=== PATIENT | male | born 1955 | race Caucasian/White ===

== ENCOUNTER 2017-07-16 10:27 | Emergency (ER) | payer MEDICAID ==
[~2017-07-16] VITALS: Ht 182.9 cm; Wt 97.0 kg
[~2017-07-16 10:27] MED LIST: GABA-532 PO; LEVO500T2 PO; LORA10TA7 PO; LOVA20TA2 PO; OXYB5TAB11 PO; PANT40TA4 PO; TAMS0.4C32 PO
[2017-07-16] MEDS ORDERED: LIDOcaine 5% patch TP STA (12:22)
[2017-07-16] MEDS ORDERED: DICL100G15 TOP (12:24)
[2017-07-16] MEDS ORDERED: LIDO700A32 TOP (12:24)
[2017-07-16] MEDS ORDERED: CYCL-1 PO (12:24)
[2017-07-16] MEDS ORDERED: NAPR-56 PO (12:24)
[2017-07-16] MEDS ORDERED: HYDROcodone/acetaminophen 5mg/325mg tablet PO ONE (12:25)
[2017-07-16] MEDS ORDERED: cyclobenzaprine 10mg tablet PO ONE (12:25)
[2017-07-16] MEDS ORDERED: ketorolac trometh inj. 60 MG/2 ML VIAL IM ONE (12:25)
[2017-07-16 12:54] VITALS: BP 125/83
== END 2017-07-16 12:56 | disposition home or self-care (01) ==
LOC: ER 10:28
DX: M54.5 Low back pain (principal); E78.00 Pure hypercholesterolemia, unspecified; G89.29 Other chronic pain; Z98.890 Other specified postprocedural states; Z88.5 Allergy status to narcotic agent; Z79.899 Other long term (current) drug therapy
CPT/HCPCS: 96372; 99283; J1885

== ENCOUNTER 2017-09-03 12:18 | Emergency (ER) | payer MEDICAID ==
[~2017-09-03] VITALS: Ht 185.4 cm; Wt 100.0 kg
[~2017-09-03 12:18] MED LIST changes: +CYCL-1 PO; +DICL100G15 TOP; +LIDO700A32 TOP
[2017-09-03] MEDS ORDERED: methylPREDNISolone sod succ 125mg/2ml vial IV ONE (13:30)
[2017-09-03] MEDS ORDERED: ipratropium/albuterol 3ml nebule NEB ONE (13:30)
[2017-09-03] MEDS ORDERED: magnesium 2GM in 50ml NS 50 ML IV ONE (13:30)
[2017-09-03] MEDS ORDERED: aspirin 81mg tab.chew PO ONE (15:40)
[2017-09-03] MEDS ORDERED: normal saline 1000ml 1,000 ML IV ONE (16:05)
[2017-09-03 16:20] LABS: BASOPHILS # (AUTO) 0.1 X10'3 (0-0.2); BASOPHILS % (AUTO) 0.5 % (0-1); EOSINOPHILS # (AUTO) 0.2 X10'3 (0-0.9); EOSINOPHILS % (AUTO) 1.2 % (0-6); HEMATOCRIT 41.9 % (42.0-52.0); HEMOGLOBIN 14.2 g/dl (14.0-17.9); LYMPHOCYTES # (AUTO) 1.1 X10'3 (1.1-4.8); LYMPHOCYTES % (AUTO) 8.7 % (21-51); MEAN CORPUSCULAR HEMOGLOBIN 30.5 PG (27.0-31.0); MEAN CORPUSCULAR HGB CONC 33.9 % (33.0-36.5); MEAN CORPUSCULAR VOLUME 90.2 FL (78-98); MEAN PLATELET VOLUME 10.3 FL (7.4-10.4); MONOCYTES # (AUTO) 0.4 X10'3 (0-0.9); MONOCYTES % (AUTO) 2.8 % (2-12); NEUTROPHILS # (AUTO) 11.2 X10'3 (1.8-7.7); NEUTROPHILS % (AUTO) 86.8 % (42-75); PLATELET COUNT 171 X10'3 (140-440); RED BLOOD COUNT 4.64 X10'6 (4.70-6.10); RED CELL DISTRIBUTION WIDTH 15.3 % (11.5-14.5); WHITE BLOOD COUNT 12.9 X10'3 (4.5-11.0)
[2017-09-03 16:45] LABS: ALANINE AMINOTRANSFERASE 20 U/L (12-78); ALBUMIN 3.6 G/DL (3.4-5.0); ALBUMIN/GLOBULIN RATIO 0.9 (1.1-1.5); ALKALINE PHOSPHATASE 72 IU/L (46-116); ANION GAP 11 (8-16); ASPARTATE AMINO TRANSFERASE 15 U/L (10-37); BILIRUBIN,TOTAL 0.5 MG/DL (0.1-1.0); BLOOD UREA NITROGEN 17 MG/DL (7-18); CALCIUM 8.4 MG/DL (8.5-10.1); CHLORIDE 105 MMOL/L (99-107); CREATININE 0.74 MG/DL (0.60-1.10); GLUCOSE 108 MG/DL (70-104); MAGNESIUM 2.5 MG/DL (1.5-2.4); POTASSIUM 3.6 MMOL/L (3.5-5.1); SODIUM 139 MMOL/L (135-145); TOTAL CARBON DIOXIDE 23.1 MMOL/L (24-32); TOTAL PROTEIN 7.8 G/DL (6.4-8.2); eGFR > 90 ML/MIN
[2017-09-03] MEDS ORDERED: PRED-531 PO (17:23)
[2017-09-03] MEDS ORDERED: ALBU6.7H INH (17:23)
[2017-09-03] MEDS ORDERED: AZIT-63 PO (17:23)
[2017-09-03 17:35] VITALS: BP 153/78
== END 2017-09-03 17:37 | disposition home or self-care (01) ==
LOC: ER 12:19
DX: J40 Bronchitis, not specified as acute or chronic (principal); E78.00 Pure hypercholesterolemia, unspecified; G89.29 Other chronic pain; Z87.442 Personal history of urinary calculi; Z98.890 Other specified postprocedural states; Z88.5 Allergy status to narcotic agent; Z79.899 Other long term (current) drug therapy
CPT/HCPCS: 36415; 71045; 80053; 83735; 83880; 84484; 85025; 93005; 94760; 96361; 96365; 96375; 99285; A6258; J2930; J3475; J7030

== ENCOUNTER 2017-11-17 21:41 | Emergency (ER) | payer MEDICAID ==
[~2017-11-17] VITALS: Ht 182.9 cm; Wt 95.0 kg
[~2017-11-17 21:41] MED LIST changes: +ALBU6.7H INH; +PRED-531 PO
[2017-11-17] MEDS ORDERED: sulfamethoxazole/trimethoprim DS (800/160mg) tablet PO ONE (22:30)
[2017-11-17] MEDS ORDERED: SULF1TAB49 PO (22:31)
[2017-11-17 22:41] VITALS: BP 125/79
== END 2017-11-17 22:45 | disposition home or self-care (01) ==
LOC: ER 21:42
DX: J34.0 Abscess, furuncle and carbuncle of nose (principal); E78.00 Pure hypercholesterolemia, unspecified; G89.29 Other chronic pain; Z87.442 Personal history of urinary calculi; Z98.890 Other specified postprocedural states; Z87.891 Personal history of nicotine dependence; Z88.5 Allergy status to narcotic agent; Z79.899 Other long term (current) drug therapy
CPT/HCPCS: 99283

== ENCOUNTER 2017-12-09 09:44 | Emergency (ER) | payer MEDICAID ==
[~2017-12-09] VITALS: Ht 182.9 cm; Wt 100.0 kg
[~2017-12-09 09:44] MED LIST changes: +SULF1TAB49 PO
[2017-12-09 10:01] VITALS: BP 121/82
[2017-12-09] MEDS ORDERED: MUPI22OI30 TOP (10:25)
[2017-12-14] MEDS ORDERED: DICL75TA5 PO (19:17)
== END 2017-12-09 10:40 | disposition home or self-care (01) ==
LOC: ER 09:45
DX: S01.20XD Unspecified open wound of nose, subsequent encounter (principal); E78.00 Pure hypercholesterolemia, unspecified; G89.29 Other chronic pain; Z87.442 Personal history of urinary calculi; Z98.890 Other specified postprocedural states; Z88.5 Allergy status to narcotic agent; Z79.899 Other long term (current) drug therapy; X58.XXXD Exposure to other specified factors, subsequent encounter
CPT/HCPCS: 99283

== ENCOUNTER 2017-12-12 20:34 | Emergency (ER) | payer MEDICAID ==
[~2017-12-12] VITALS: Ht 182.9 cm; Wt 97.0 kg
[~2017-12-12 20:34] MED LIST changes: +MUPI22OI30 TOP
[2017-12-12 20:40] VITALS: BP 133/74
[2017-12-12] MEDS ORDERED: CEPH-572 PO (21:24)
[2017-12-12] MEDS ORDERED: SULF1TAB49 PO (21:24)
[2017-12-12] MEDS ORDERED: cephalexin 250mg capsule PO ONE (21:40)
[2017-12-12] MEDS ORDERED: sulfamethoxazole/trimethoprim DS (800/160mg) tablet PO ONE (21:40)
[2017-12-14] MEDS ORDERED: DICL75TA5 PO (19:17)
== END 2017-12-12 21:47 | disposition home or self-care (01) ==
LOC: ER 20:34
DX: L03.116 Cellulitis of left lower limb (principal); E78.00 Pure hypercholesterolemia, unspecified; G89.29 Other chronic pain; Z98.890 Other specified postprocedural states; Z88.5 Allergy status to narcotic agent; Z79.899 Other long term (current) drug therapy
CPT/HCPCS: 99283

== ENCOUNTER 2018-09-27 01:16 | Inpatient (IN) | payer MEDICAID | END 2018-09-29 14:44 | disposition home or self-care (01) | LOC: ER 01:16 → SUR 3N 09-28 14:22 → ED HOLD 05:06 → SUR 3N 18:45 ==

== ENCOUNTER 2018-10-05 15:14 | Inpatient (IN) | payer MEDICAID | END 2018-10-08 16:45 | disposition home or self-care (01) | LOC: ER 15:14 → ED HOLD 20:35 → SUR 3N 22:30 ==

== ENCOUNTER 2018-11-28 17:56 | Emergency (ER) | payer MEDICAID ==
[~2018-11-28] VITALS: Ht 182.9 cm; Wt 104.5 kg
[~2018-11-28 17:56] MED LIST changes: -ALBU6.7H INH; -CYCL-1 PO; -DICL100G15 TOP; +HYDR-3972 PO; +LACT1CAP26 PO; -LEVO500T2 PO; -LIDO700A32 TOP; -MUPI22OI30 TOP; -OXYB5TAB11 PO; -PANT40TA4 PO; -PRED-531 PO; -SULF1TAB49 PO; -TAMS0.4C32 PO
[2018-11-28] MEDS ORDERED: normal saline 1000ml 1,000 ML IVB ONE (18:43)
[2018-11-28 19:07] LABS: BASOPHILS # (AUTO) 0.1 X10'3 (0-0.2); BASOPHILS % (AUTO) 0.6 % (0-1); EOSINOPHILS # (AUTO) 0.6 X10'3 (0-0.9); EOSINOPHILS % (AUTO) 4.1 % (0-6); HEMATOCRIT 46.4 % (42.0-52.0); HEMOGLOBIN 15.3 g/dl (14.0-17.9); LYMPHOCYTES # (AUTO) 3.2 X10'3 (1.1-4.8); LYMPHOCYTES % (AUTO) 21.2 % (21-51); MEAN CORPUSCULAR HEMOGLOBIN 30.1 PG (27.0-31.0); MEAN CORPUSCULAR VOLUME 91.3 FL (78-98); MEAN PLATELET VOLUME 10.5 FL (7.4-10.4); MONOCYTES # (AUTO) 1.9 X10'3 (0-0.9); MONOCYTES % (AUTO) 12.2 % (2-12); NEUTROPHILS # (AUTO) 9.5 X10'3 (1.8-7.7); NEUTROPHILS % (AUTO) 61.9 % (42-75); PLATELET COUNT 192 X10'3 (140-440); RED BLOOD COUNT 5.08 X10'6 (4.70-6.10); RED CELL DISTRIBUTION WIDTH 15.2 % (11.5-14.5); WHITE BLOOD COUNT 15.3 X10'3 (4.5-11.0)
[2018-11-28 19:14] LABS: ALANINE AMINOTRANSFERASE 25 U/L (12-78); ALBUMIN 3.8 G/DL (3.4-5.0); ALKALINE PHOSPHATASE 76 IU/L (46-116); ANION GAP 9 (8-16); ASPARTATE AMINO TRANSFERASE 19 U/L (10-37); BILIRUBIN,TOTAL 0.4 MG/DL (0.1-1.0); BLOOD UREA NITROGEN 21 MG/DL (7-18); BUN/CREATININE RATIO 17.8 (5.4-32.0); CALCIUM 8.7 MG/DL (8.5-10.1); CHLORIDE 106 MMOL/L (99-107); CREATININE 1.18 MG/DL (0.60-1.10); GLUCOSE 92 MG/DL (70-104); LIPASE 128 U/L (73-393); POTASSIUM 3.8 MMOL/L (3.5-5.1); SODIUM 143 MMOL/L (135-145); TOTAL CARBON DIOXIDE 27.6 MMOL/L (24-32); TOTAL PROTEIN 7.5 G/DL (6.4-8.2); eGFR 63 ML/MIN
[2018-11-28] MEDS ORDERED: HYDROcodone/acetaminophen 5mg/325mg tablet PO ONE (19:40)
[2018-11-28] MEDS ORDERED: ondansetron/PF 4mg/2ml inj IV ONE (19:40)
[2018-11-28 19:48] LABS: CLARITY,URINE CLEAR (Clear); COLOR,URINE YELLOW (Yellow); GLUCOSE, URINE NEGATIVE (Neg); KETONES,URINE NEGATIVE (Neg); LEUKOCYTE ESTERASE ,URINE NEGATIVE (Neg); NITRITES, URINE NEGATIVE (Neg); OCCULT BLOOD,URINE SMALL (Neg); PH,URINE 5.5 (4.8-8.0); PROTEIN,URINE NEGATIVE (Neg); UROBILINOGEN,URINE 0.2 E.U/dL (0.2-1.0)
[2018-11-28 19:53] LABS: BACTERIA,URINE NONE SEEN /HPF (Neg); RBC,URINE 0-2 /HPF (0-2); SQUAMOUS EPITHELIAL CELL,UR FEW /LPF (FEW); UA COLLECTION TYPE VOIDED; WBC,URINE NONE SEEN /HPF (0-4)
[2018-11-28] MEDS ORDERED: ONDA8TAB6 PO (20:28)
[2018-11-28] MEDS ORDERED: HYDR-3965 PO (20:28)
[2018-11-28] MEDS ORDERED: CYCL-1 PO (20:28)
[2018-11-28 20:32] VITALS: BP 128/50
== END 2018-11-28 20:35 | disposition home or self-care (01) ==
LOC: ER 17:57
DX: M54.9 Dorsalgia, unspecified (principal); R11.10 Vomiting, unspecified; R10.9 Unspecified abdominal pain; E78.00 Pure hypercholesterolemia, unspecified; M19.90 Unspecified osteoarthritis, unspecified site; G89.29 Other chronic pain; Z88.5 Allergy status to narcotic agent; Z98.890 Other specified postprocedural states; Z79.899 Other long term (current) drug therapy
CPT/HCPCS: 36415; 80053; 81001; 83690; 85025; 85610; 96361; 96374; 99283; J2405; J7030

== ENCOUNTER 2019-07-20 13:06 | Emergency (ER) | payer MEDICAID ==
[~2019-07-20] VITALS: Ht 188 cm; Wt 109.1 kg
[~2019-07-20 13:06] MED LIST changes: +CYCL-1 PO; +ONDA8TAB6 PO
[2019-07-20 13:27] LABS: BASOPHILS % (AUTO) 0.5 % (0-1); EOSINOPHILS % (AUTO) 0.5 % (0-6); HEMATOCRIT 44.7 % (42.0-52.0); HEMOGLOBIN 15.3 g/dl (14.0-17.9); LYMPHOCYTES # (AUTO) 1.2 X10'3 (1.1-4.8); LYMPHOCYTES % (AUTO) 19.1 % (21-51); MEAN CORPUSCULAR HGB CONC 34.3 g/dL (33.0-36.5); MEAN CORPUSCULAR VOLUME 90.3 FL (78-98); MEAN PLATELET VOLUME 9.9 FL (7.4-10.4); MONOCYTES # (AUTO) 1.1 X10'3 (0-0.9); MONOCYTES % (AUTO) 17.5 % (2-12); NEUTROPHILS # (AUTO) 3.9 X10'3 (1.8-7.7); NEUTROPHILS % (AUTO) 62.4 % (42-75); PLATELET COUNT 152 X10'3 (140-440); RED BLOOD COUNT 4.95 X10'6 (4.70-6.10); RED CELL DISTRIBUTION WIDTH 15.9 % (11.5-14.5); WHITE BLOOD COUNT 6.3 X10'3 (4.5-11.0)
[2019-07-20 13:42] LABS: ALANINE AMINOTRANSFERASE 35 U/L (12-78); ALBUMIN 3.7 G/DL (3.4-5.0); ALKALINE PHOSPHATASE 81 IU/L (46-116); ANION GAP 11 (8-16); ASPARTATE AMINO TRANSFERASE 24 U/L (10-37); BILIRUBIN,TOTAL 0.4 MG/DL (0.1-1.0); BLOOD UREA NITROGEN 15 MG/DL (7-18); BUN/CREATININE RATIO 17.9 (5.4-32.0); CALCIUM 8.1 MG/DL (8.5-10.1); CHLORIDE 103 MMOL/L (99-107); CREATININE 0.84 MG/DL (0.60-1.10); GLUCOSE 96 MG/DL (70-104); POTASSIUM 3.5 MMOL/L (3.5-5.1); SODIUM 138 MMOL/L (135-145); TOTAL CARBON DIOXIDE 24.5 MMOL/L (24-32); TOTAL PROTEIN 7.5 G/DL (6.4-8.2); eGFR > 90 ML/MIN
[2019-07-20 13:47] LABS: PLATELET ESTIMATE NORMAL; TOTAL CELLS COUNTED 100
[2019-07-20] MEDS ORDERED: ipratropium/albuterol 3ml nebule NEB ONE (13:55)
[2019-07-20] MEDS ORDERED: predniSONE 20 mg tablet PO ONE (13:55)
[2019-07-20] MEDS ORDERED: TAM75C PO (14:38)
[2019-07-20] MEDS ORDERED: ONDA8TAB13 PO (14:38)
[2019-07-20] MEDS ORDERED: ALB0.5UD IH (14:40)
[2019-07-20] MEDS ORDERED: PRED20TA PO (14:40)
[2019-07-20 15:28] VITALS: BP 125/88
--- NOTE | 2019-07-20 15:30 | NUR ---
splint has been checked by Roddy Jimenes STATISTICAL SECRETARY, +cms to rt hand
== END 2019-07-20 15:31 | disposition home or self-care (01) ==
LOC: ER 13:07
DX: S62.111A Displaced fracture of triquetrum [cuneiform] bone, right wrist, initial encounter for closed fracture (principal); R06.02 Shortness of breath; M79.18 Myalgia, other site; E78.00 Pure hypercholesterolemia, unspecified; I10 Essential (primary) hypertension; M19.90 Unspecified osteoarthritis, unspecified site; G89.29 Other chronic pain; Z87.442 Personal history of urinary calculi; Z98.890 Other specified postprocedural states; Z88.5 Allergy status to narcotic agent; Z79.899 Other long term (current) drug therapy; Z87.891 Personal history of nicotine dependence; W18.30XA Fall on same level, unspecified, initial encounter; Y93.89 Activity, other specified; Y92.098 Other place in other non-institutional residence as the place of occurrence of the external cause; Y99.9 Unspecified external cause status
CPT/HCPCS: 29125; 36415; 71045; 73130; 80053; 84484; 85025; 93005; 94640; 99284; J7512; 94760

== ENCOUNTER 2020-01-24 07:22 | Outpatient (CLI) | payer MEDICAID ==
[~2020-01-24] VITALS: Ht 182.9 cm; Wt 113.4 kg
[~2020-01-24 07:22] MED LIST changes: +ONDA8TAB13 PO
[2020-01-24] MEDS ORDERED: albuterol 2.5 MG/3 ML nebule NEB ONE (08:05)
== END 2020-01-24 23:59 | disposition home or self-care (01) ==
LOC: RT 07:22
PROVIDERS: ATTEND Physician Assistant
DX: J44.9 Chronic obstructive pulmonary disease, unspecified (principal)
CPT/HCPCS: 94060; 94760

== ENCOUNTER 2020-11-10 13:02 | Emergency (ER) | payer MEDICAID ==
[~2020-11-10] VITALS: Ht 185.4 cm; Wt 113.6 kg
[2020-11-10 14:21] LABS: BASOPHILS # (AUTO) 0.1 X10'3 (0-0.2); HEMOGLOBIN 17.3 g/dl (14.0-17.9); LYMPHOCYTES % (AUTO) 29.3 % (21-51)
[2020-11-10 14:23] LABS: BASOPHILS % (AUTO) 0.9 % (0-1); EOSINOPHILS # (AUTO) 0.4 X10'3 (0-0.9); EOSINOPHILS % (AUTO) 4.2 % (0-6); HEMATOCRIT 51.6 % (42.0-52.0); LYMPHOCYTES # (AUTO) 2.5 X10'3 (1.1-4.8); MEAN CORPUSCULAR HEMOGLOBIN 31.3 PG (27.0-31.0); MEAN CORPUSCULAR HGB CONC 33.5 g/dL (33.0-36.5); MEAN CORPUSCULAR VOLUME 93.4 FL (78-98); MEAN PLATELET VOLUME 9.8 FL (7.4-10.4); MONOCYTES # (AUTO) 0.9 X10'3 (0-0.9); MONOCYTES % (AUTO) 10.2 % (2-12); NEUTROPHILS # (AUTO) 4.8 X10'3 (1.8-7.7); NEUTROPHILS % (AUTO) 55.4 % (42-75); PLATELET COUNT 198 X10'3 (140-440); RED BLOOD COUNT 5.52 X10'6 (4.70-6.10); WHITE BLOOD COUNT 8.7 X10'3 (4.5-11.0)
[2020-11-10 14:32] LABS: ALANINE AMINOTRANSFERASE 23 U/L (12-78); ALBUMIN 4.1 G/DL (3.4-5.0); ALBUMIN/GLOBULIN RATIO 1.1 (1.1-1.5); ALKALINE PHOSPHATASE 83 IU/L (46-116); ANION GAP 12 (8-16); ASPARTATE AMINO TRANSFERASE 14 U/L (10-37); BILIRUBIN,TOTAL 0.5 MG/DL (0.1-1.0); BLOOD UREA NITROGEN 18 MG/DL (7-18); CHLORIDE 104 MMOL/L (99-107); GLUCOSE 94 MG/DL (70-104); POTASSIUM 4.1 MMOL/L (3.5-5.1); SODIUM 139 MMOL/L (135-145); eGFR 85 ML/MIN
[2020-11-10 14:45] LABS: LARGE PLATELETS FEW; PLATELET ESTIMATE NORMAL
[2020-11-10] MEDS ORDERED: acetaminophen 325mg tablet PO ONE (15:45)
--- NOTE | 2020-11-10 16:31 | NUR ---
LILA WALLER MADE AWARE OF NEGATIVE COVID TEST. PER LILA CANCEL 3 HR TROPONIN.
[2020-11-10 16:54] VITALS: BP 149/99
== END 2020-11-10 16:55 | disposition home or self-care (01) ==
LOC: ER 13:03
DX: B34.9 Viral infection, unspecified (principal); Z20.822 Contact with and (suspected) exposure to COVID-19; E78.00 Pure hypercholesterolemia, unspecified; I10 Essential (primary) hypertension; N19 Unspecified kidney failure; M19.90 Unspecified osteoarthritis, unspecified site; G89.29 Other chronic pain; Z87.440 Personal history of urinary (tract) infections; Z79.899 Other long term (current) drug therapy; Z88.8 Allergy status to other drugs, medicaments and biological substances
CPT/HCPCS: 36415; 71045; 80053; 83880; 84484; 85008; 85025; 87635; 93005; 99285; C9803

== ENCOUNTER 2022-07-31 09:23 | Emergency (ER) | payer OTHER, MEDICAID ==
[~2022-07-31] VITALS: Ht 182.9 cm; Wt 118.0 kg
[2022-07-31 10:01] VITALS: BP 136/82
[2022-07-31 10:54] LABS: BASOPHILS # (AUTO) 0.1 X10'3 (0-0.2); EOSINOPHILS # (AUTO) 0.5 X10'3 (0-0.9); HEMOGLOBIN 16.1 g/dl (14.0-17.9); NEUTROPHILS # (AUTO) 5.4 X10'3 (1.8-7.7); WHITE BLOOD COUNT 9.8 X10'3 (4.5-11.0)
[2022-07-31 10:55] LABS: BASOPHILS % (AUTO) 0.8 % (0-1); EOSINOPHILS % (AUTO) 5.4 % (0-6); HEMATOCRIT 48.6 % (42.0-52.0); LYMPHOCYTES # (AUTO) 2.4 X10'3 (1.1-4.8); LYMPHOCYTES % (AUTO) 24.7 % (21-51); MEAN CORPUSCULAR HEMOGLOBIN 30.4 PG (27.0-31.0); MEAN CORPUSCULAR HGB CONC 33.1 g/dL (33.0-36.5); MEAN CORPUSCULAR VOLUME 91.6 FL (78-98); MEAN PLATELET VOLUME 9.6 FL (7.4-10.4); MONOCYTES # (AUTO) 1.3 X10'3 (0-0.9); MONOCYTES % (AUTO) 13.8 % (2-12); NEUTROPHILS % (AUTO) 55.3 % (42-75); PLATELET COUNT 200 X10'3 (140-440); RED CELL DISTRIBUTION WIDTH 14.4 % (11.5-14.5)
[2022-07-31 11:17] LABS: ALANINE AMINOTRANSFERASE 23 U/L (12-78); ALBUMIN 3.9 G/DL (3.4-5.0); ALKALINE PHOSPHATASE 84 IU/L (46-116); ANION GAP 9 (8-16); ASPARTATE AMINO TRANSFERASE 18 U/L (10-37); BILIRUBIN,TOTAL 0.3 MG/DL (0.1-1.0); BLOOD UREA NITROGEN 18 MG/DL (7-18); BUN/CREATININE RATIO 18.8 (5.4-32.0); CHLORIDE 105 MMOL/L (99-107); CREATININE 0.96 MG/DL (0.60-1.10); GLUCOSE 115 MG/DL (70-104); LIPASE 375 U/L (73-393); POTASSIUM 4.1 MMOL/L (3.5-5.1); SODIUM 140 MMOL/L (135-145); TOTAL PROTEIN 7.7 G/DL (6.4-8.2); eGFR 78 ML/MIN
[2022-07-31 11:25] LABS: CALCIUM 9.1 MG/DL (8.5-10.1)
[2022-07-31 11:42] LABS: CLARITY,URINE CLEAR (Clear); COLOR,URINE YELLOW (Yellow); GLUCOSE, URINE NEGATIVE (Neg); KETONES,URINE NEGATIVE (Neg); LEUKOCYTE ESTERASE ,URINE NEGATIVE (Neg); NITRITES, URINE NEGATIVE (Neg); OCCULT BLOOD,URINE NEGATIVE (Neg); PROTEIN,URINE NEGATIVE (Neg); UROBILINOGEN,URINE 0.2 E.U/dL (0.2-1.0)
[2022-07-31 12:00] LABS: UA COLLECTION TYPE CLN CATCH MIDSTREAM
== END 2022-07-31 12:17 | disposition home or self-care (01) ==
LOC: ER 12:03
DX: K42.9 Umbilical hernia without obstruction or gangrene (principal); E78.00 Pure hypercholesterolemia, unspecified; I10 Essential (primary) hypertension; Z87.442 Personal history of urinary calculi; M19.90 Unspecified osteoarthritis, unspecified site; G89.29 Other chronic pain; Z98.890 Other specified postprocedural states; Z88.5 Allergy status to narcotic agent; Z79.899 Other long term (current) drug therapy
CPT/HCPCS: 36415; 80053; 81003; 83690; 85025; 99283

== ENCOUNTER 2022-08-10 09:13 | Outpatient (CLI) | payer OTHER, MEDICAID | END 2022-08-10 23:59 | disposition home or self-care (01) | LOC: RAD 09:13 | PROVIDERS: ATTEND Family Medicine | DX: K42.9 Umbilical hernia without obstruction or gangrene (principal) | CPT/HCPCS: 76705 ==

== ENCOUNTER 2022-09-16 10:24 | Day surgery (SDC) | payer OTHER, MEDICAID ==
[2022-09-14 15:39] LABS: BASOPHILS # (AUTO) 0.1 X10'3 (0-0.2); BASOPHILS % (AUTO) 0.7 % (0-1); EOSINOPHILS # (AUTO) 0.4 X10'3 (0-0.9); EOSINOPHILS % (AUTO) 4.3 % (0-6); LYMPHOCYTES % (AUTO) 19.4 % (21-51); MEAN CORPUSCULAR HEMOGLOBIN 30.2 PG (27.0-31.0); MEAN CORPUSCULAR HGB CONC 32.7 g/dL (33.0-36.5); MEAN CORPUSCULAR VOLUME 92.3 FL (78-98); MONOCYTES # (AUTO) 1.1 X10'3 (0-0.9); MONOCYTES % (AUTO) 10.4 % (2-12); NEUTROPHILS # (AUTO) 6.6 X10'3 (1.8-7.7); NEUTROPHILS % (AUTO) 65.2 % (42-75); PRE OP HEMATOCRIT 48.1 % (42.0-52.0); PRE OP HEMOGLOBIN 15.7 g/dL (14.0-17.9); PRE OP PLATELET COUNT 202 X10'3 (140-440); RED BLOOD COUNT 5.22 X10'6 (4.70-6.10); RED CELL DISTRIBUTION WIDTH 14.7 % (11.5-14.5)
[2022-09-14 15:50] LABS: ALBUMIN 3.7 G/DL (3.4-5.0); ALKALINE PHOSPHATASE 76 IU/L (46-116); BLOOD UREA NITROGEN 17 MG/DL (7-18); BUN/CREATININE RATIO 16.2 (5.4-32.0); CALCIUM 8.7 MG/DL (8.5-10.1); CHLORIDE 107 MMOL/L (99-107); CREATININE 1.05 MG/DL (0.60-1.10); PRE OP ALT 19 U/L (30-65); PRE OP ANION GAP 5 (8-16); PRE OP AST 19 U/L (10-37); PRE OP BILIRUB, TOTAL 0.2 MG/DL (0.0-1.0); PRE OP GLUCOSE 109 MG/DL (70-104); PRE OP POTASSIUM 4.5 MMOL/L (3.4-5.1); PRE OP SODIUM 140 MMOL/L (135-145); TOTAL CARBON DIOXIDE 27.8 MMOL/L (24-32); TOTAL PROTEIN 7.3 G/DL (6.4-8.2); eGFR 71 ML/MIN
[2022-09-14 15:52] LABS: CLARITY,URINE CLEAR (Clear); COLOR,URINE YELLOW (Yellow); GLUCOSE, URINE NEGATIVE (Neg); KETONES,URINE NEGATIVE (Neg); LEUKOCYTE ESTERASE ,URINE NEGATIVE (Neg); NITRITES, URINE NEGATIVE (Neg); OCCULT BLOOD,URINE NEGATIVE (Neg); PH,URINE 5.5 (4.8-8.0); PROTEIN,URINE NEGATIVE (Neg); UROBILINOGEN,URINE 0.2 E.U/dL (0.2-1.0)
[2022-09-14 16:04] LABS: UA COLLECTION TYPE CLN CATCH MIDSTREAM
[2022-09-16] VITALS (12 sets, daily range): BP systolic 123–170; BP diastolic 78–104
[~2022-09-16] VITALS: Ht 182.9 cm; Wt 120.0 kg
[~2022-09-16 10:24] MED LIST changes: -CYCL-1 PO; -GABA-532 PO; -HYDR-3972 PO; -LACT1CAP26 PO; -LORA10TA7 PO; -LOVA20TA2 PO; +NO HOME MEDS; -ONDA8TAB13 PO; -ONDA8TAB6 PO; +cefazolin 2gm/D5W 100mL 100 ML IV ONE; +famotidine 20mg tablet PO ONE; +ringers solution, lacted 1,000 ML IV SCH
[2022-09-16] MEDS ORDERED: BUPIVAcaine/PF 2.5 mg/ml (0.25%) 30ml vial ONE ×2 (13:08→13:58)
[2022-09-16] MEDS ORDERED: ondansetron/PF 4mg/2ml inj ONE (14:37)
[2022-09-16] MEDS ORDERED: sevoflurane 250ml liquid IH ONE (14:37)
[2022-09-16] MEDS ORDERED: fentaNYL /PF 50mcg/ml 5ml ampule ONE (14:40)
[2022-09-16] MEDS ORDERED: midazolam 1 mg/ML 2ml injection ONE (14:40)
[2022-09-16] MEDS ORDERED: dexamethasone sod phosphate 4mg/ml inj. ONE (14:52)
[2022-09-16] MEDS ORDERED: propofol inj 20 ML IV ONE (14:52)
[2022-09-16] MEDS ORDERED: rocuronium 10mg/ml inj IV ONE (14:52)
[2022-09-16] MEDS ORDERED: ringers solution, lacted 1,000 ML IV SCH (15:35)
[2022-09-16] MEDS ORDERED: morphine 4 MG/ML inj SYRINge IV PRN (15:35)
[2022-09-16] MEDS ORDERED: meperidine/PF 25mg/ml syringe IV PRN ×2 (15:35)
[2022-09-16] MEDS ORDERED: proCHLORperazine 10 MG/2 ml inj IV PRN (15:35)
[2022-09-16] MEDS ORDERED: morphine 2 MG/ML inj. syringe IV PRN (15:35)
[2022-09-16] MEDS ORDERED: ondansetron/PF 4mg/2ml inj IV PRN (15:35)
[2022-09-16] MEDS ORDERED: neostigmine methylsulfate 1 MG/ML 10ml vial ONE (15:39)
[2022-09-16] MEDS ORDERED: glycopyrrolate 0.2mg/ml inj ONE (15:39)
[2022-09-16] MEDS: meperidine/PF 25mg/ml syringe IV PRN ×2 (16:04→16:47)
--- NOTE | 2022-09-16 16:09 | NUR ---
PATIENT WAS UNABLE TO GET PRESCRIBED MEDS DUE TO NO ID. i WAS ABLE TO ARRANGE TO GET HIS MEDS AT [facility] FOR HIM WHICH HE AGREED AND HE NOW HAS THEM IN HIS BELONGING BAGS AND HE IS AWARE OF THIS POST OP. 3 BOTTLES 1 FOR PAIN 1 FOR NAUSEA 1 FOR STOOL SOFTENER.
[2022-09-16] MEDS ORDERED: acetaminophen 1,000mg/100ml IV 100 ML IV ONE (16:20)
--- NOTE | 2022-09-16 18:08 | NUR ---
ALL DISCHARGE CRITERIA HAS BEEN MET. VSS, PAIN AT A TOLERABLE LEVEL, ABLE TO SAFELY AMBULATE AND TRANSFER SELF. IV TAKEN OUT WITHOUT ANY COMPLICATIONS. ALL DISCHARGE INSTRUCTIONS COVERED WITH PATIENT AND ALL QUESTIONS ANSWERED. PATIENT TAKEN OUT VIA WHEELCHAIR WITH ALL BELONGINGS TO PERSONAL VEHICLE WHERE [employer]NAL SALES ENGINEER DROVE PATIENT HOME. Addendum: 09/16/22 at 1832 by Adrien Kasper RN Amended: Links added.
== END 2022-09-16 18:08 | disposition home or self-care (01) ==
LOC: PAS 10:24
PROVIDERS: ATTEND Surgery
DX: K42.0 Umbilical hernia with obstruction, without gangrene (principal); M19.90 Unspecified osteoarthritis, unspecified site; E78.00 Pure hypercholesterolemia, unspecified; E66.9 Obesity, unspecified; Z68.35 Body mass index [BMI] 35.0-35.9, adult; E55.9 Vitamin D deficiency, unspecified; F12.90 Cannabis use, unspecified, uncomplicated; Z88.5 Allergy status to narcotic agent; Z96.643 Presence of artificial hip joint, bilateral; Z98.890 Other specified postprocedural states; Z86.14 Personal history of Methicillin resistant Staphylococcus aureus infection; Z87.442 Personal history of urinary calculi; Z87.891 Personal history of nicotine dependence; Z79.82 Long term (current) use of aspirin; Z79.899 Other long term (current) drug therapy
CPT/HCPCS: 36415; 49592; 80053; 81003; 82948; 85025; 93005; C1713; C1781; J0131; J0690; J1100; J2175; J2250; J2270; J2405; J2704; J2710; J3010; J3490; J7030; J7120; Z7506; Z7508; Z7512; A4618; A7000

== ENCOUNTER 2024-08-14 11:02 | Emergency (ER) | payer MEDICARE, MEDICAID ==
[~2024-08-14] VITALS: Ht 180.3 cm; Wt 128.8 kg
[~2024-08-14 11:02] MED LIST changes: +ACET-2971 PO; -cefazolin 2gm/D5W 100mL 100 ML IV ONE; -famotidine 20mg tablet PO ONE; -ringers solution, lacted 1,000 ML IV SCH
[2024-08-14] MEDS ORDERED: SULF1TAB49 PO (12:37)
[2024-08-14 12:47] VITALS: BP 144/86; PULSE 80; RESP 16; TEMP 97.9; O2SAT 98
== END 2024-08-14 12:48 | disposition home or self-care (01) ==
LOC: ER 11:03
DX: L02.211 Cutaneous abscess of abdominal wall (principal); M19.90 Unspecified osteoarthritis, unspecified site; E78.00 Pure hypercholesterolemia, unspecified; I10 Essential (primary) hypertension; Z87.440 Personal history of urinary (tract) infections; Z88.5 Allergy status to narcotic agent; Z98.890 Other specified postprocedural states
CPT/HCPCS: 99283